=== PATIENT | female | born 1950 | race Caucasian/White ===

== ENCOUNTER 2019-08-26 14:03 | Emergency (ER) | payer MEDICARE, OTHER ==
[~2019-08-26] VITALS: Ht 167.6 cm; Wt 113.4 kg
[2019-08-26] MEDS ORDERED: AMARYL1 MG PO (14:11)
[2019-08-26] MEDS ORDERED: METFORMIN HCL500 M3 PO (14:11)
[2019-08-26] MEDS ORDERED: ASA81BEC PO (14:12)
[2019-08-26] MEDS ORDERED: NEURONTIN 300M300 M2 PO (14:12)
[2019-08-26] MEDS ORDERED: ZANAFLEX4 MG PO (14:47)
[2019-08-26] MEDS ORDERED: CENTANY30 GM TOP (14:48)
[2019-08-26] MEDS ORDERED: VALSARTAN80 MG PO (15:26)
[2019-08-26 15:40] VITALS: BP 167/77
== END 2019-08-26 15:48 | disposition home or self-care (01) ==
LOC: M.ERS 14:03
DX: S39.012A Strain of muscle, fascia and tendon of lower back, initial encounter (principal); S50.01XA Contusion of right elbow, initial encounter; S70.11XA Contusion of right thigh, initial encounter; S80.01XA Contusion of right knee, initial encounter; S40.021A Contusion of right upper arm, initial encounter; S80.212A Abrasion, left knee, initial encounter; S90.414A Abrasion, right lesser toe(s), initial encounter; S60.811A Abrasion of right wrist, initial encounter; Z90.49 Acquired absence of other specified parts of digestive tract; Z90.710 Acquired absence of both cervix and uterus; Z88.8 Allergy status to other drugs, medicaments and biological substances; W01.0XXA Fall on same level from slipping, tripping and stumbling without subsequent striking against object, initial encounter; Y93.89 Activity, other specified; Y92.89 Other specified places as the place of occurrence of the external cause; Y99.8 Other external cause status